=== PATIENT | male | born 1995 | race Asian ===

== ENCOUNTER 2018-08-24 19:42 | Emergency (ER) | payer OTHER ==
[2018-08-24] MEDS ORDERED: IBUPROFEN 600 MG TAB PO ONE (21:04)
--- NOTE | 2018-08-24 21:04 | EDPHY ---
H & P Time Seen by Provider: 08/24/18 20:26 HPI/ROS: CHIEF COMPLAINT: Dislocated shoulder HISTORY OF PRESENT ILLNESS: This is a 23-year-old male who was climbing and indoor gym when he slipped and his left hand was still holding onto the rope when he felt like his left shoulder was twisted and dislocated. The patient reports significant pain in the shoulder. He reports that the paramedics reduced his shoulder dislocation and he presents in a sling from the climbing gym. Patient denies any other injury, no head injury, loss consciousness, chest pain , shortness of breath, abdominal pain, lower extremity trauma, or right upper extremity trauma. He was otherwise well prior to the event. REVIEW OF SYSTEMS: A comprehensive 10 system review of systems was reviewed and is otherwise negative aside from elements mentioned in the history of present illness. PAST MEDICAL HISTORY: Patient denies. SOCIAL HISTORY: Nonsmoker. Currently a sling. VITAL SIGNS: see nurse's notes. GENERAL: Well-developed, well-nourished, in no acute distress. HEENT: Atraumatic. Normal, no discharge or icterus, moist mucous membranes. Neck: supple, FROM. Nontender to palpation. LUNGS: Clear to auscultation bilaterally, no wheezes, rhonchi or rales. No tenderness the chest wall. CARDIAC: Regular rate and rhythm, no rubs, murmurs or gallops. ABDOMEN: Soft, nontender, nondistended, bowel sounds normal. BACK: No CVA tenderness. No vertebral tenderness. EXTREMITIES: Left shoulder: No clavicular deformity, no tenderness at the AC joint, appears adequately reduced. Sensation is intact over the deltoid. Currently in a sling. NEURO: Alert and oriented, grossly nonfocal. SKIN: Warm and dry, no rash. Smoking Status: Never smoked Constitutional: Initial Vital Signs Temperature (C) 37.0 C 08/24/18 19:44 Heart Rate 58 L 08/24/18 19:44 Respiratory Rate 16 08/24/18 19:44 Blood Pressure 127/85 H 08/24/18 19:44 O2 Sat (%) 98 08/24/18 19:44 O2 Delivery Mode Room Air Allergies/Adverse Reactions: pollen extracts Allergy (Verified 08/24/18 19:48) Home Medications: Medication Instructions Recorded NK [No Known Home Meds] 08/24/18 Medical Decision Making - Diagnostics Imaging Results: Imaging Impressions Shoulder X-Ray 08/24/18 19:49 Impression: 1. No residual dislocation. 2. Hill-Sachs fracture deformity left humeral head. ED Course/Re-evaluation: Patient's x-ray demonstrated a successfully reduced shoulder. Instructions were provided to the patient to include sling, rest, ice, ibuprofen , follow up with Orthopedic surgery. Please see the discharge instructions. Differential Diagnosis: Differential diagnosis for the patient's injury was considered including but not limited to contusion, dislocation, AC separation, fracture, sprain, rotator cuff injury. - Data Points Medications Given: Discontinued Medications Ibuprofen (Motrin) 400 mg PO EDNOW ONE Stop: 08/24/18 21:05 Last Admin: 08/24/18 21:22 Dose: Not Given Departure - Departure Disposition: Home, Routine, Self-Care Clinical Impression: Dislocation of left shoulder joint Qualifiers: Encounter type: initial encounter Qualified Code(s): S43.005A - Unspecified dislocation of left shoulder joint, initial encounter Condition: Good Instructions: Shoulder Dislocation (ED) Additional Instructions: Please wear the sling until you are seen by Orthopedic surgery. Please limit the movement of that shoulder. Apply ice for 20-30 minutes every 2-3 hours for the next 24 hr. Take ibuprofen 600 mg every 6-8 hours as needed for pain and to help control swelling. Please call the orthopedic surgeon and make an appointment for the end of this week. Be sure they are aware that this is an emergency department follow-up visit. Referrals: NONE *PRIMARY CARE P,. [Primary Care Provider] - As per Instructions Eloy Smith MD [Medical Doctor] - As per Instructions
[2018-08-24 21:24] VITALS: BP 116/82
== END 2018-08-24 21:23 | disposition home or self-care (01) ==
DX: S43.005A Unspecified dislocation of left shoulder joint, initial encounter (principal); W17.89XA Other fall from one level to another, initial encounter; Y92.39 Other specified sports and athletic area as the place of occurrence of the external cause; Y93.31 Activity, mountain climbing, rock climbing and wall climbing